=== PATIENT | male | born 1955 | race Caucasian/White ===

== ENCOUNTER 2017-02-08 21:49 | Emergency (ER) | payer BC ==
[~2017-02-08] VITALS: Ht 185.4 cm; Wt 88.5 kg
[2017-02-08 21:59] VITALS: BP_SYST 137
[2017-02-08] MEDS ORDERED: NACL 0.9% 1,000 ML IV ONE (22:24)
[2017-02-08] MEDS ORDERED: ONDANSETRON HCL 4 MG/2 ML VIAL IVP ONE (22:30)
[2017-02-08 22:45] LABS: HEMATOCRIT 51.8 % (36-54); HEMOGLOBIN 17.1 g/dL (14.0-18.0); MEAN CORPUSCULAR HEMOGLOBIN 29 pg (27-31); MEAN CORPUSCULAR HGB CONC 33 % (32-36); MEAN CORPUSCULAR VOLUME 89 fL (79.0-98.0); PLATELET COUNT (AUTO) 218 K/uL (130-430); RED BLOOD CELL COUNT(AUTO) 5.84 MIL/uL (4.2-6.2); RED CELL DISTRIBUTION WIDTH 12.3 % (9.0-15.0); WHITE BLOOD COUNT (AUTO) 12.9 K/uL (4.8-10.8)
[2017-02-08 22:55] LABS: CREATININE 1.04 mg/dL (0.55-1.30); POTASSIUM 4.7 mmol/L (3.5-5.1)
[2017-02-08 22:59] LABS: BAND % (MANUAL) 7 % (0-6); BASOPHILS % (MANUAL) 0 % (0-2); EOSINOPHILS % (MANUAL) 0 % (0-7); LYMPHOCYTES % (MANUAL) 1 % (20-46); MONOCYTES % (MANUAL) 1 % (0-11)
[2017-02-08 23:00] LABS: TOTAL BILIRUBIN 1.3 mg/dL (0.0-1.0)
[2017-02-08 23:03] LABS: INR 1.1 (0.80-1.20)
[2017-02-08 23:30] VITALS: BP_SYST 137
== END 2017-02-08 23:30 | disposition home or self-care (01) ==
LOC: SED 21:49
DX: A08.4 Viral intestinal infection, unspecified (principal); J45.909 Unspecified asthma, uncomplicated; R79.1 Abnormal coagulation profile
CPT/HCPCS: 36415; 80053; 83690; 85007; 85027; 85610; 85730; 96361; 96374; 99284; J2405; J7030

== ENCOUNTER 2020-08-20 18:44 | Emergency (ER) | payer BC, OTHER ==
[~2020-08-20] VITALS: Ht 188 cm; Wt 79.4 kg
[2020-08-20 19:20] VITALS: BP_SYST 134
[2020-08-20] MEDS ORDERED: KETOROLAC TROMETHAMINE 60 MG/2 ML VIAL IM ONE (20:00)
[2020-08-20] MEDS ORDERED: IBUP-1969 PO (20:03)
[2020-08-20 20:27] VITALS: BP_SYST 122
== END 2020-08-20 20:27 | disposition home or self-care (01) ==
LOC: SED 18:44
DX: S43.102A Unspecified dislocation of left acromioclavicular joint, initial encounter (principal); S49.91XA Unspecified injury of right shoulder and upper arm, initial encounter; R07.81 Pleurodynia; J45.909 Unspecified asthma, uncomplicated; Z88.2 Allergy status to sulfonamides; V13.4XXA Pedal cycle driver injured in collision with car, pick-up truck or van in traffic accident, initial encounter; Y93.89 Activity, other specified; Y92.89 Other specified places as the place of occurrence of the external cause; Y99.8 Other external cause status
CPT/HCPCS: 71045; 71100; 73030; 96372; 99284; J1885